=== PATIENT | female | born 1995 | race Caucasian/White ===

== ENCOUNTER → 2016-11-19 | Outpatient (CLI) | payer OTHER ==
--- NOTE | 2016-11-19 22:12 | MRI ---
MRI right knee without contrast INDICATION: Knee pain below patella soccer injury initial encounter TECHNIQUE: Noncontrast MR imaging right knee standard protocol FINDINGS: There is a small joint effusion. Minimal lateral patellar tracking. No acute pivot shift is noted. There is a buckling lax appearance of the ACL correlate with laxity or soft endpoint on exam. The appearance is concerning for nonacute tear. There is no edema at the femoral or tibial attachments. No extensor rupture. There is mild free edge fraying posterior horn medial meniscus without major defect. The collateral ligaments are intact. No advanced arthrosis of the tibiofemoral compartments. No focal full-thickness chondral lesions are noted. No osseous contusion or fracture. IMPRESSION: Buckling lax configuration of the ACL suggesting previous detachment/disruption but no acute pivot shift injury correlate with laxity on exam and in point Small joint effusion Minimal free edge fraying posterior horn medial meniscus without major defect. No evidence of additional internal derangement of the knee. Electronically signed by: Joesph Tripp MD 11/19/2016 10:11 PM CDT
== END | disposition home or self-care (01) ==
LOC: MRI 08:59
PROVIDERS: ATTEND Family Medicine
DX: M25.561 Pain in right knee (principal)

== ENCOUNTER 2019-07-07 11:12 | Emergency (ER) | payer BC, OTHER ==
--- NOTE | 2019-07-07 11:29 | ED.PDOC ---
History of Present Illness - General Time Seen by Provider: 07/07/19 11:18 Additional Information: 24 y/o female with onset of upper abdominal and back pain yesterday and worse today. no vomiting, diarrhea, or nausea. denies urinary sx. takes OCP and LMP was a month ago. Denies vaginal d/c. Review of Systems - Review of Systems Constitutional: Denies: chills, fever EENTM: Denies: blurred vision, throat pain Respiratory: Denies: cough, short of breath Cardiology: Denies: chest pain, palpitations Gastrointestinal/Abdominal: States: abdominal pain. Denies: constipation, diarrhea, nausea, vomiting Genitourinary: Denies: discharge, dysuria, frequency, hematuria Musculoskeletal: States: back pain. Denies: joint pain Skin: Denies: rash Neurological: Denies: anxiety, headache Family Medical History - Family History Mother Family History: Unknown Living Status: Still Living Physical Exam - Physical Exam General Appearance: Comfortable, No apparent distress, Well Developed, Well Groomed Eyes, Ears, Nose, Throat Exam: PERRL/EOMI, normal ENT inspection Neck: non-tender, full range of motion, thyromegaly Respiratory: lungs clear, normal breath sounds, no respiratory distress Cardiovascular/Chest: regular rate, rhythm, no edema, no murmur, JVD Gastrointestinal/Abdominal: normal bowel sounds - epigastric and RUQ mild, soft, tenderness Back Exam: CVA tenderness (R) Extremity: normal range of motion, non-tender, normal inspection Neurologic: alert, normal mood/affect, oriented x 3 Skin Exam: normal color, rash Progress - Progress Progress: 07/07/19 15:24 GB sono neg for gallstones or wall thickening. sono report given to patient and parent 07/07/19 15:26 - Results/Orders Results/Orders: 07/07/19 11:35 Sodium Chloride 0.9% (Flush) [Saline Flush Syringe] 10 ml IV PRN PRN Laboratory Results - last 24 hr 07/07/19 07/07/19 07/07/19 11:44 11:44 11:44 WBC 9.0 RBC 4.76 Hgb 12.7 Hct 38.0 MCV 79.8 L MCH 26.7 L MCHC 33.5 RDW 14.5 Plt Count 332 MPV 7.1 L Absolute Neuts (auto) 6.20 Absolute Lymphs (auto) 2.20 Absolute Monos (auto) 0.50 Absolute Eos (auto) 0.10 Absolute Basos (auto) 0.00 Neutrophils % 68.9 Lymphocytes % 24.2 Monocytes % 5.6 Eosinophils % 0.9 L Basophils % 0.4 Sodium 138 Potassium 4.3 Chloride 104 Carbon Dioxide 25 Anion Gap 13.3 BUN 16 Creatinine 0.68 BUN/Creatinine Ratio 23.5 H Random Glucose 102 Serum Osmolality 277.1 Calcium 9.3 Total Bilirubin 0.4 Direct Bilirubin < 0.1 Indirect Bilirubin 0.3 AST 17 ALT 15 Alkaline Phosphatase 59 Serum Total Protein 7.8 Albumin 4.2 Serum HCG, Qual Negative Urine Color Urine Appearance Urine pH Ur Specific [place] Urine Protein Urine Glucose (UA) Urine Ketones Urine Blood Urine Nitrite Urine Bilirubin Urine Urobilinogen Ur Leukocyte Esterase Urine RBC Urine WBC Ur Epithelial Cells Amorphous Sediment Urine Bacteria 07/07/19 11:45 WBC RBC Hgb Hct MCV MCH MCHC RDW Plt Count MPV Absolute Neuts (auto) Absolute Lymphs (auto) Absolute Monos (auto) Absolute Eos (auto) Absolute Basos (auto) Neutrophils % Lymphocytes % Monocytes % Eosinophils % Basophils % Sodium Potassium Chloride Carbon Dioxide Anion Gap BUN Creatinine BUN/Creatinine Ratio Random Glucose Serum Osmolality Calcium Total Bilirubin Direct Bilirubin Indirect Bilirubin AST ALT Alkaline Phosphatase Serum Total Protein Albumin Serum HCG, Qual Urine Color Yellow Urine Appearance Clear Urine pH 5.5 Ur Specific [place] 1.025 Urine Protein Negative Urine Glucose (UA) Negative Urine Ketones Negative Urine Blood Moderate H Urine Nitrite Negative Urine Bilirubin Negative Urine Urobilinogen 0.2 Ur Leukocyte Esterase Negative Urine RBC 3-5 H Urine WBC 3-5 H Ur Epithelial Cells 5-10 Amorphous Sediment 1+ Urine Bacteria 1+ Departure - Departure Clinical Impression: Abdominal pain Qualifiers: Abdominal location: epigastric Qualified Code(s): R10.13 - Epigastric pain Time of Disposition: 15:28 Disposition: Discharge to Home or Self Care Condition: Good Instructions: DI for Abdominal Pain-Adult Referrals: Maximo Snow III, MD [Primary Care Provider] - 1-2 Weeks Prescriptions: Famotidine [Pepcid] 40 mg PO DAILY #20 tab Home Medications: Ambulatory Orders Famotidine [Pepcid] 40 mg PO DAILY #20 tab 07/07/19 Levonorgestrel & Eth Estradiol [Falmina] 1 tab PO DAILY 07/07/19
[2019-07-07] MEDS: ONDANSETRON INJ 4 MG/2 ML VIAL IV ONE (12:00)
[2019-07-07] MEDS: SODIUM CHLORIDE 0.9% (FLUSH) 10 ML SYG IV PRN (12:02)
--- NOTE | 2019-07-07 14:11 | US ---
EXAM DESCRIPTION: Gall Bladder: ULTRASOUND. CLINICAL HISTORY: RUQ pain COMPARISON: None. TECHNIQUE: Transabdominal scanning: Chicas-scale and Doppler modes. FINDINGS: Gallbladder: normal size, shape, echogenicity; no intraluminal stones or sludge. No fluid around the gallbladder. No wall thickening. 1.8 mm. Non-tender with transducer pressure. Common bile duct: caliber 4.2 mm within normal limits. Liver: Heterogeneously increased echogenicity; contour liver capsule smooth where seen. No fluid around the liver. Intrahepatic biliary ducts normal caliber. Doppler hepatopedal flow portal vein.. Heterogeneous hypoechoic subcapsular nodular region measuring 2.7 x 2.1 x 1.6 cm. Query minimal vascularity. Long axis right lobe 14.2 cm. Pancreas: normal size Normal echogenicity. Duct not seen. Aorta: 2.0 cm normal caliber. Right kidney: long axis is text. IMPRESSION: 1. Heterogeneous steatosis in the liver with no enlargement. Normal ducts and vascularity. Query hypoechoic and mildly vascular nodule subcapsular right lobe measuring 2.7 cm. Consider follow-up, NON- EMERGENT MRI scan liver without and with gadolinium IV contrast. No ascites. 2. Gallbladder, pancreas, ducts, and right kidney are unremarkable. Normal caliber proximal abdominal aorta. Electronically signed by: Rommel Taylor MD 07/07/2019 2:09 PM CDT
[2019-07-07 15:42] VITALS: BP 128/83; TEMP 98.1; O2SAT 98
== END 2019-07-07 15:42 | disposition home or self-care (01) ==
LOC: ER 11:12
DX: R10.13 Epigastric pain (principal)
CPT/HCPCS: 36415; 76705; 80048; 80076; 81001; 84703; 85025; J2405